=== PATIENT | female | born 1970 | race Caucasian/White ===

== ENCOUNTER → 2018-10-14 | Outpatient (CLI) | payer OTHER | END | disposition home or self-care (01) | LOC: LAB SHORT 14:07 → LAB 14:07 | DX: N39.0 Urinary tract infection, site not specified (principal) | CPT/HCPCS: 87077; 87086; 87186 ==

== ENCOUNTER 2019-11-27 00:21 | Day surgery (SDC) | payer OTHER ==
--- NOTE | 2019-11-27 16:32 | NUR ---
PT DID NOT SHOW FOR HER APPOINTMENT IN THE [facility] TODAY.
== END 2019-11-27 22:39 | disposition home or self-care (01) ==
LOC: ATC 00:21
DX: L57.0 Actinic keratosis (principal); L40.0 Psoriasis vulgaris; E11.9 Type 2 diabetes mellitus without complications; I10 Essential (primary) hypertension; Z79.899 Other long term (current) drug therapy; Z79.4 Long term (current) use of insulin; Z88.2 Allergy status to sulfonamides; Z88.1 Allergy status to other antibiotic agents; Z91.018 Allergy to other foods
CPT/HCPCS: J7050; Q5103

== ENCOUNTER 2019-12-30 00:40 | Day surgery (SDC) | payer OTHER ==
--- NOTE | 2019-12-30 16:00 | NUR ---
PT VERY ANXIOUS ABOUT GETTING INFLECTRA IT IS A NEW MED. EDUCATED PT ON PROCEDURE AND MEDICATION, QUESTIONS/CONCERNS ANSWERED. ORDERING MD NOTIFIED, NEW ORDERS GIVEN. PT REFUSES PREMEDS AT THIS TIME, PT STATES KNOWING SHE CAN HAVE THEM IF SHE NEEDS IS HELPING WITH HER ANXIETY. WILL CONTINUE TO MONITOR. PT DOING WELL AT THIS TIME.
[2019-12-30] MEDS ORDERED: ALLO100 PO (16:03)
[2019-12-30] MEDS ORDERED: BASAGLAR K100 UNIT/2 SC (16:08)
[2019-12-30] MEDS ORDERED: Glucophage1000 MG PO (16:09)
[2019-12-30] MEDS ORDERED: GLYB2.5 PO (16:09)
[2019-12-30] MEDS ORDERED: VERA120 PO (16:10)
== END 2019-12-30 17:08 | disposition home or self-care (01) ==
LOC: ATC 00:40
DX: L40.0 Psoriasis vulgaris (principal); E11.9 Type 2 diabetes mellitus without complications; Z79.4 Long term (current) use of insulin; Z79.899 Other long term (current) drug therapy; Z88.1 Allergy status to other antibiotic agents; Z88.2 Allergy status to sulfonamides; Z88.8 Allergy status to other drugs, medicaments and biological substances
CPT/HCPCS: 96413; 96415; J7050; Q0163; Q5103

== ENCOUNTER 2020-01-17 00:23 | Day surgery (SDC) | payer OTHER ==
[~2020-01-17 00:23] MED LIST: ALLO100 PO; BASAGLAR K100 UNIT/2 SC; GLYB2.5 PO; Glucophage1000 MG PO; VERA120 PO
[2020-01-17] MEDS ORDERED: INFLECTRA100 MG IV (14:16)
== END 2020-01-17 17:22 | disposition home or self-care (01) ==
LOC: ATC 00:23
DX: L40.0 Psoriasis vulgaris (principal); E11.9 Type 2 diabetes mellitus without complications; Z88.1 Allergy status to other antibiotic agents; Z88.2 Allergy status to sulfonamides; Z88.8 Allergy status to other drugs, medicaments and biological substances; Z79.899 Other long term (current) drug therapy; Z79.84 Long term (current) use of oral hypoglycemic drugs
CPT/HCPCS: 96413; 96415; J7050; Q0163; Q5103

== ENCOUNTER 2020-02-10 00:05 | Day surgery (SDC) | payer OTHER ==
[~2020-02-10 00:05] MED LIST changes: -BASAGLAR K100 UNIT/2 SC; +BASAGLAR K100 UNIT/4 SC; +INFLECTRA100 MG IV
[2020-03-20] MEDS ORDERED: VITAMIN D32000 UNIT PO (14:09)
[2020-03-20] MEDS ORDERED: CYAN500 PO (14:09)
[2020-04-06] MEDS ORDERED: Prinivil10 MG PO (23:00)
[2020-04-06] MEDS ORDERED: HYDCHL25 PO (23:00)
[2020-04-07] MEDS ORDERED: Flagyl500 MG PO (01:38)
== END 2020-02-10 16:23 | disposition home or self-care (01) ==
LOC: ATC 00:05
DX: L40.0 Psoriasis vulgaris (principal); E11.9 Type 2 diabetes mellitus without complications; Z79.899 Other long term (current) drug therapy; Z88.2 Allergy status to sulfonamides; Z88.8 Allergy status to other drugs, medicaments and biological substances
CPT/HCPCS: 96413; 96415; J7050; Q0163; Q5103

== ENCOUNTER 2020-04-19 21:44 | Observation (INO) | payer OTHER ==
[~2020-04-19] VITALS: Ht 175.3 cm; Wt 136.1 kg
[~2020-04-19 21:44] MED LIST changes: +CYAN500 PO; +Flagyl500 MG PO; -Glucophage1000 MG PO; +HYDCHL25 PO; +METF500 PO; +Prinivil10 MG PO; +VITAMIN D32000 UNIT PO
[2020-04-19 23:39] LABS: BASOPHILS ABSOLUTE AUTO 0.02 K/mm3 (0.00-0.23); BASOPHILS PERCENT AUTO 0 % (0-2); EOSINOPHILS PERCENT AUTO 2 % (0-6); Hematocrit 40.6 % (33.0-51.0); Hemoglobin 13.5 g/dL (11.5-16.0); IMMATURE GRAN ABSOLUTE AUTO 0.01 K/mm3 (0.00-0.10); IMMATURE GRAN PERCENT AUTO 0 % (0-1); LYMPHOCYTES ABSOLUTE AUTO 2.17 K/mm3 (0.84-5.20); LYMPHOCYTES PERCENT AUTO 33 % (21-46); MONOCYTES ABSOLUTE AUTO 0.36 K/mm3 (0.16-1.47); MONOCYTES PERCENT AUTO 6 % (4-13); Mean Corpuscular HGB 30.7 pg (26.0-34.0); Mean Corpuscular HGB Conc 33.3 g/dL (31.5-36.5); Mean Corpuscular Volume 92 fL (80-100); Mean Platelet Volume 11.3 fL (9.1-12.4); NEUTROPHILS ABSOLUTE AUTO 3.92 K/mm3 (1.96-9.15); NEUTROPHILS PERCENT AUTO 60 % (41-73); Platelet Count 317 K/mm3 (150-400); RDW Coefficient Variation 14.7 % (11.7-14.2); RDW Standard Deviation 47.7 fL (35.1-46.3); White Blood Cell Count 6.58 K/mm3 (4.00-11.30)
[2020-04-19 23:57] LABS: Alanine Aminotransfer (ALT/SGP 61 U/L (12-78); Albumin, Blood 3.4 g/dL (3.4-5.0); Albumin/Globulin Ratio 0.6 (0.8-1.8); Alk Phos 77 U/L (50-136); Anion Gap 9 mmol/L (6-16); Aspartate Aminotrans (AST/SGOT 57 U/L (12-37); Bilirubin, Total 1.4 mg/dL (0.1-1.0); Blood Urea Nitrogen 18 mg/dL (8-24); Bun/Creatinine Ratio 18.3 (12.0-20.0); CO2, Blood 24 mmol/L (21-32); Calcium, Blood 9.2 mg/dL (8.5-10.1); Chloride, Blood 100 mmol/L (98-108); Creatinine, Blood 0.99 mg/dL (0.40-1.00); Globulin, Blood 5.6 g/dL (2.2-4.0); Glomerular Filtration Rate >60 (60-); Glucose, Blood 296 mg/dL (70-99); Potassium, Blood 4.6 mmol/L (3.5-5.5); Sodium, Blood 133 mmol/L (136-145)
[2020-04-20 00:42] LABS: Source, Urine Clean Catch
[2020-04-20 00:45] LABS: Blood, Urine 1+ (Neg); Glucose Qualitative, Urine 1+ (Neg); Ketones, Urine 2+ (Neg); Leukocyte Esterase, Urine 1+ (Neg); Nitrite, Urine Neg (Neg); Protein, Urine 2+ (Neg); Urobilinogen, Urine 2+ (Normal)
[2020-04-20 00:52] LABS: Appearance, Urine Cloudy (Clear); Bilirubin, Urine 2+ (Neg); Color, Urine Amber (P-Yellow)
[2020-04-20 00:54] LABS: Amorphous Light (0-Heavy); Bacteria Many /hpf; Mucus Mod (0-Heavy); Red Blood Cells, Urine 0-2 /hpf (0-2); Squamous Epithelial Cells Many /hpf (Few)
[2020-04-20] MEDS ORDERED: HUMULIN 70100 UNIT/3 SC (01:10)
[2020-04-20] MEDS ORDERED: LANTUS SOL100 UNIT/1 SC (05:39)
[2020-04-20 06:03] LABS: BASOPHILS ABSOLUTE AUTO 0.01 K/mm3 (0.00-0.23); BASOPHILS PERCENT AUTO 0 % (0-2); EOSINOPHILS ABSOLUTE AUTO 0.13 K/mm3 (0.00-0.68); EOSINOPHILS PERCENT AUTO 2 % (0-6); Hematocrit 34.8 % (33.0-51.0); Hemoglobin 11.5 g/dL (11.5-16.0); IMMATURE GRAN ABSOLUTE AUTO 0.01 K/mm3 (0.00-0.10); IMMATURE GRAN PERCENT AUTO 0 % (0-1); LYMPHOCYTES ABSOLUTE AUTO 1.91 K/mm3 (0.84-5.20); LYMPHOCYTES PERCENT AUTO 32 % (21-46); MONOCYTES ABSOLUTE AUTO 0.43 K/mm3 (0.16-1.47); MONOCYTES PERCENT AUTO 7 % (4-13); Mean Corpuscular HGB 30.5 pg (26.0-34.0); Mean Corpuscular Volume 92 fL (80-100); Mean Platelet Volume 10.9 fL (9.1-12.4); NEUTROPHILS ABSOLUTE AUTO 3.57 K/mm3 (1.96-9.15); NEUTROPHILS PERCENT AUTO 59 % (41-73); Platelet Count 238 K/mm3 (150-400); RDW Coefficient Variation 14.5 % (11.7-14.2); RDW Standard Deviation 47.3 fL (35.1-46.3); Red Blood Cell Count 3.77 M/mm3 (3.80-5.20); White Blood Cell Count 6.06 K/mm3 (4.00-11.30)
[2020-04-20 06:24] LABS: Alanine Aminotransfer (ALT/SGP 51 U/L (12-78); Albumin/Globulin Ratio 0.6 (0.8-1.8); Alk Phos 62 U/L (50-136); Anion Gap 9 mmol/L (6-16); Aspartate Aminotrans (AST/SGOT 41 U/L (12-37); Bilirubin, Total 1.2 mg/dL (0.1-1.0); Blood Urea Nitrogen 20 mg/dL (8-24); CO2, Blood 23 mmol/L (21-32); Calcium, Blood 8.6 mg/dL (8.5-10.1); Chloride, Blood 102 mmol/L (98-108); Creatinine, Blood 0.77 mg/dL (0.40-1.00); Globulin, Blood 4.7 g/dL (2.2-4.0); Glomerular Filtration Rate >60 (60-); Glucose, Blood 217 mg/dL (70-99); Sodium, Blood 134 mmol/L (136-145); Total Protein, Blood 7.7 g/dL (6.4-8.2)
--- NOTE | 2020-04-20 07:41 | NUR ---
Pt was admitted to room 324 via stretcher from the ED. Pt is alert and oriented but sleepy. Pt states she has some mild pain at her umbilicus. Pt is on tele showing ST at 100. Pt lungs are clear. Pt is receiving IV fluids. Oriented to room. Pt is sleepy and wanting to rest. Report given to Chula SILVA. Pt in contact isolation until GI panel is received.
--- NOTE | 2020-04-20 07:48 | NUR ---
Rn summary: Pt is a little more alert, arouses easier. Continues to rest. Tele shows SR at 60. IV fluids as ordered. Bed alarm is on, call light in reach.
--- NOTE | 2020-04-20 18:35 | NUR ---
SHIFT SUMMARY BREA COMPLAINED OF PAIN THIS SHIFT AND GOT 25MCG FENTANYL WHICH MADE HER VERY SLEEPY, BUT HELPED A LOT WITH THE PAIN. BED ALARM ON WHILE PT LETHARGIC FROM FENTANYL, SHE IS AWARE AND COOPERATIVE. CBGS NOT REQUIRING INSULIN THIS SHIFT. FINISHING MIVF. SBA TO NENITA. TELE DC'D. NO BM THIS SHIFT, UNABLE TO COLLECT STOOL SAMPLE. TOOK MEDS PRESCRIBED. FAMILY VISITED.
--- NOTE | 2020-04-21 04:01 | NUR ---
SHIFT SUMMARY ADMITTED FOR ENTERITIS. FULL CODE. IV FLUIDS THAT WERE ORDERED HAVE BEEN COMPLETED. UNABLE TO RETRIEVE STOOL SAMPLE THERE HAS BEEN NO BM. SHE HAS ADVANCED TO A SOFT BITE SIZE DIET. MEDICATED FOR PAIN ONE TIME SO FAR THIS SHIFT. RUNS TACHYCARDIC, LOW GRADE FEVER OF 100.5 DEGREES. NO OTHER CONCERNS THIS SHIFT
[2020-04-21 05:21] LABS: BASOPHILS ABSOLUTE AUTO 0.03 K/mm3 (0.00-0.23); BASOPHILS PERCENT AUTO 1 % (0-2); EOSINOPHILS ABSOLUTE AUTO 0.18 K/mm3 (0.00-0.68); EOSINOPHILS PERCENT AUTO 5 % (0-6); Hematocrit 34.8 % (33.0-51.0); Hemoglobin 11.1 g/dL (11.5-16.0); IMMATURE GRAN PERCENT AUTO 0 % (0-1); LYMPHOCYTES ABSOLUTE AUTO 1.13 K/mm3 (0.84-5.20); LYMPHOCYTES PERCENT AUTO 33 % (21-46); MONOCYTES ABSOLUTE AUTO 0.31 K/mm3 (0.16-1.47); MONOCYTES PERCENT AUTO 9 % (4-13); Mean Corpuscular HGB 29.4 pg (26.0-34.0); Mean Corpuscular HGB Conc 31.9 g/dL (31.5-36.5); Mean Corpuscular Volume 92 fL (80-100); Mean Platelet Volume 11.4 fL (9.1-12.4); NEUTROPHILS ABSOLUTE AUTO 1.76 K/mm3 (1.96-9.15); NEUTROPHILS PERCENT AUTO 52 % (41-73); Platelet Count 224 K/mm3 (150-400); RDW Coefficient Variation 14.3 % (11.7-14.2); RDW Standard Deviation 47.7 fL (35.1-46.3); Red Blood Cell Count 3.78 M/mm3 (3.80-5.20); White Blood Cell Count 3.41 K/mm3 (4.00-11.30)
[2020-04-21 05:39] LABS: Albumin, Blood 2.8 g/dL (3.4-5.0); Anion Gap 6 mmol/L (6-16); Blood Urea Nitrogen 12 mg/dL (8-24); Bun/Creatinine Ratio 17.6 (12.0-20.0); CO2, Blood 25 mmol/L (21-32); Calcium, Blood 8.4 mg/dL (8.5-10.1); Chloride, Blood 103 mmol/L (98-108); Creatinine, Blood 0.68 mg/dL (0.40-1.00); Glomerular Filtration Rate >60 (60-); Glucose, Blood 150 mg/dL (70-99); Phosphorus, Blood 3.4 mg/dL (2.5-4.9); Potassium, Blood 3.8 mmol/L (3.5-5.5); Sodium, Blood 134 mmol/L (136-145)
--- NOTE | 2020-04-21 10:52 | NUR ---
GI PANEL WITH PCR RECEIVED VERBAL ORDER FOR GI PANEL WITH PCR D/T ENTERITIS.
--- NOTE | 2020-04-21 17:51 | NUR ---
PER TITA WHITT TO ADD VITAMIN D AND VITAMIN B-12 TO PATIENT'S ORDER.
--- NOTE | 2020-04-21 17:56 | NUR ---
Shift Summary A/Ox4, pleasant and cooperative. Up in room independently, aware of limitations and calls for needs appropriately. No bm this shift, stool sample still needed. Medicated for 5-6/10 lower abdominal pain x 2, patient reports this occurs expecially when eating. Febrile with temps a little over 99.0 this shift otherwise VSS. Appetite is moderately good. Patient reported mild nausea x 1 but refused zofran. States zofran causes her to have a huge headache and will request for this when/if she is extremely nauseous, but requests for phenergan instead. Explained that Dr. Marcus wants to try zofran first and if nausea remains, will give phenergan second. Patient is agreeable. Received verbal order for phenergan, EMAR updated. Will continue to monitor.
--- NOTE | 2020-04-22 04:08 | NUR ---
ASSISTANT SURVEYOR SUMMARY PT HAD AN UNEVENTFUL NIGHT W NO NEW SYMTPOMS. PT DID NOT HAVE A BOWEL MOVEMENT DURING THE NIGHT SO STOOL SAMPLE IS STILL UNCOLLECTED. PT ATTEMPTED TO HAVE A BOWEL MOVEMENT AT THE START OF THE SHIFT BUT CLAIMED THAT IT HURT HER STOMACH TO BEAR DOWN. PT IS AXO X4 AND IS PLEASANT/COOPERATIVE. PT SLEPT MOST OF THE NIGHT AND IS CURRENTLY SLEEPING COMFORTABLY W CALL LIGHT WITHIN REACH.
[2020-04-22 05:41] LABS: BASOPHILS ABSOLUTE AUTO 0.02 K/mm3 (0.00-0.23); BASOPHILS PERCENT AUTO 1 % (0-2); EOSINOPHILS ABSOLUTE AUTO 0.16 K/mm3 (0.00-0.68); EOSINOPHILS PERCENT AUTO 7 % (0-6); Hematocrit 33.1 % (33.0-51.0); IMMATURE GRAN ABSOLUTE AUTO 0.01 K/mm3 (0.00-0.10); IMMATURE GRAN PERCENT AUTO 1 % (0-1); LYMPHOCYTES ABSOLUTE AUTO 0.88 K/mm3 (0.84-5.20); LYMPHOCYTES PERCENT AUTO 40 % (21-46); MONOCYTES ABSOLUTE AUTO 0.19 K/mm3 (0.16-1.47); MONOCYTES PERCENT AUTO 9 % (4-13); Mean Corpuscular HGB 31.1 pg (26.0-34.0); Mean Corpuscular HGB Conc 33.2 g/dL (31.5-36.5); Mean Corpuscular Volume 94 fL (80-100); Mean Platelet Volume 11.2 fL (9.1-12.4); NEUTROPHILS ABSOLUTE AUTO 0.96 K/mm3 (1.96-9.15); NEUTROPHILS PERCENT AUTO 43 % (41-73); Platelet Count 224 K/mm3 (150-400); RDW Coefficient Variation 14.2 % (11.7-14.2); RDW Standard Deviation 47.2 fL (35.1-46.3); Red Blood Cell Count 3.54 M/mm3 (3.80-5.20); White Blood Cell Count 2.22 K/mm3 (4.00-11.30)
[2020-04-22 06:23] LABS: Albumin, Blood 2.9 g/dL (3.4-5.0); Anion Gap 8 mmol/L (6-16); Blood Urea Nitrogen 10 mg/dL (8-24); Bun/Creatinine Ratio 12.3 (12.0-20.0); CO2, Blood 24 mmol/L (21-32); Calcium, Blood 8.8 mg/dL (8.5-10.1); Chloride, Blood 104 mmol/L (98-108); Creatinine, Blood 0.81 mg/dL (0.40-1.00); Glomerular Filtration Rate >60 (60-); Glucose, Blood 180 mg/dL (70-99); Phosphorus, Blood 3.6 mg/dL (2.5-4.9); Sodium, Blood 136 mmol/L (136-145)
--- NOTE | 2020-04-22 19:27 | NUR ---
Shift Summary C/O mild abdominal pain in the morning, nothing too severe for pain medications per patient state. Did not medicate for pain this shift. Patient received "brown cow" cocktail to help move bowels. Appetite is good. Dr. Raymond consulted, plan for upper endoscopy tomorrow afternoon. Patient to have clear liquids for breakfast 04/23/20 and then NPO afterward. Up in room and ambulated in hallway independently, tolerated well. No other acute concerns.
--- NOTE | 2020-04-23 04:33 | NUR ---
SHIFT SUMMARY ADMITTED FOR ENTERITIS. FULL CODE. SCHEDULED FOR UPPER ENDO TODAY. WILL BE CLEAR LIQUID DIET FOR BREAKFAST, THEN NPO. RAPID COVID PERFORMED THIS SHIFT WAS NEGATIVE. PT COMPLAINED OF RASH, NOTICED HIVES FROM A REACTION OF SOME KIND. THIS PT IS REACTIVE TO MANY ANTIBIOTICS, AND SHE HAS HAD ANTIBIOTIC RX SINCE ADMIT. INFORMED HOSPITALIST AND HE ORDERED BENEDRYL PRN. NO BM THIS SHIFT. MIRALAX GIVEN AT BEGINNING OF SHIFT
--- NOTE | 2020-04-23 14:31 | NUR ---
04/23/20 1431 Mildred Dela Cruz History, Chart, Medications and Allergies reviewed before start of procedure.MAC CASE WITH DR. ROBERTSON. SEE ANETHESIA RECORD FOR CARE
--- NOTE | 2020-04-23 15:30 | NUR ---
PT RETURNED FROM HAVING UPPER ENDOSCOPY. PT IS SLEEPY, BUT AWAKENS EASILY. PT IS ON ROOM AIR AND MAINTAINING SPO2. VITALS ARE STABLE, PT DENIES ANY PAIN OR DISCOMFORT. DR OLSON NOTIFIED OF PROCEDURAL RESULTS AND PLAN IS TO DISCHARGE PT WHEN MORE AWAKE.
[2020-04-23] MEDS ORDERED: DOCUZEN 8.6-501 EACH PO (16:29)
[2020-04-23] MEDS ORDERED: IBUP200 PO (16:30)
[2020-04-23] MEDS ORDERED: MIRALAX17 GM PO (16:30)
--- NOTE | 2020-04-23 17:07 | NUR ---
DISCHARGE INSTRUCTIONS GONE OVER WITH PT AND FAMILY. INSTRUCTED ON NEW PRESCRIPTIONS AND WERE TO GET THEM. FOLLOW UP VISITS GONE OVER. BELONGINGS GATHERED AND GIVEN TO PT. PRIOR TO DISCHARGE, PT WAS ABLE TO AMBULATE IN ROOM, CONSUME FLUIDS WITHOUT ANY NAUSEA AND VOMITING, AND DENIED ANY PAIN. FAMILY AND PT BOTH FELT COMFORTABLE WITH PROCEEDING WITH DISCHARGE.
== END 2020-04-23 16:56 | disposition home or self-care (01) ==
LOC: ER 21:44 → MEDS 21:45
PROVIDERS: Internal Medicine; Physician Assistant; Student in an Organized Health Care Education/Training Program; ADMIT Internal Medicine
PROC: 0DB58ZZ Excision of Esophagus, Via Natural or Artificial Opening Endoscopic (ICD-10-PCS; principal; 2020-04-23 14:30)
DX: K29.80 Duodenitis without bleeding (principal); K29.50 Unspecified chronic gastritis without bleeding; K20.9 Esophagitis, unspecified; K44.9 Diaphragmatic hernia without obstruction or gangrene; E66.01 Morbid (severe) obesity due to excess calories; E11.65 Type 2 diabetes mellitus with hyperglycemia; I10 Essential (primary) hypertension; L40.50 Arthropathic psoriasis, unspecified; Z88.1 Allergy status to other antibiotic agents; Z88.0 Allergy status to penicillin; Z88.2 Allergy status to sulfonamides; Z91.018 Allergy to other foods; Z79.4 Long term (current) use of insulin; Z79.899 Other long term (current) drug therapy; Z68.41 Body mass index [BMI] 40.0-44.9, adult; Z20.828 Contact with and (suspected) exposure to other viral communicable diseases
CPT/HCPCS: 36415; 74177; 80053; 80069; 81001; 82947; 83605; 83690; 83930; 85025; 85651; 86140; 87077; 87086; 87186; 88305; 88312; 88342; 93005; 93010; 96361; 96365; 96372; 96375; 96376; 99285-25; A9270-GY; G0378; J1200; J1650; J2001; J2250; J2550; J2704; J3010; J7030; J7120; Q9967; U0002

== ENCOUNTER 2020-06-12 01:56 | Day surgery (SDC) | payer OTHER ==
[~2020-06-12 01:56] MED LIST changes: +DOCUZEN 8.6-501 EACH PO; +HUMULIN 70100 UNIT/3 SC; +IBUP200 PO; +LANTUS SOL100 UNIT/1 SC; +MIRALAX17 GM PO
== END 2020-06-12 12:00 | disposition home or self-care (01) ==
LOC: ATC 01:56
DX: L40.0 Psoriasis vulgaris (principal); L57.0 Actinic keratosis; E11.9 Type 2 diabetes mellitus without complications; I10 Essential (primary) hypertension; Z79.4 Long term (current) use of insulin; Z79.899 Other long term (current) drug therapy; Z88.1 Allergy status to other antibiotic agents; Z91.018 Allergy to other foods; Z88.2 Allergy status to sulfonamides
CPT/HCPCS: J7050; Q5103

== ENCOUNTER 2021-08-12 10:39 | Emergency (ER) | payer OTHER ==
[~2021-08-12] VITALS: Ht 175.3 cm; Wt 129.3 kg
[~2021-08-12 10:39] MED LIST changes: +OXAYDO5 M1 PO
[2021-08-12 11:44] LABS: BASOPHILS ABSOLUTE AUTO 0.04 K/mm3 (0.00-0.23); BASOPHILS PERCENT AUTO 0 % (0-2); EOSINOPHILS ABSOLUTE AUTO 0.09 K/mm3 (0.00-0.68); EOSINOPHILS PERCENT AUTO 1 % (0-6); Hemoglobin 13.9 g/dL (11.5-16.0); IMMATURE GRAN ABSOLUTE AUTO 0.03 K/mm3 (0.00-0.10); IMMATURE GRAN PERCENT AUTO 0 % (0-1); LYMPHOCYTES ABSOLUTE AUTO 2.01 K/mm3 (0.84-5.20); LYMPHOCYTES PERCENT AUTO 23 % (21-46); MONOCYTES ABSOLUTE AUTO 0.53 K/mm3 (0.16-1.47); MONOCYTES PERCENT AUTO 6 % (4-13); Mean Corpuscular HGB Conc 33.9 g/dL (31.5-36.5); Mean Corpuscular Volume 89 fL (80-100); Mean Platelet Volume 10.6 fL (9.1-12.4); NEUTROPHILS ABSOLUTE AUTO 6.21 K/mm3 (1.96-9.15); NEUTROPHILS PERCENT AUTO 70 % (41-73); Platelet Count 288 K/mm3 (150-400); RDW Coefficient Variation 15.1 % (11.7-14.2); RDW Standard Deviation 48.3 fL (35.1-46.3); Red Blood Cell Count 4.63 M/mm3 (3.80-5.20); White Blood Cell Count 8.91 K/mm3 (4.00-11.30)
[2021-08-12 12:24] LABS: Anion Gap 11 mmol/L (6-16); Blood Urea Nitrogen 16 mg/dL (8-24); Bun/Creatinine Ratio 21.5 (12.0-20.0); CO2, Blood 23 mmol/L (21-32); Calcium, Blood 10.2 mg/dL (8.5-10.1); Chloride, Blood 99 mmol/L (98-108); Creatinine, Blood 0.74 mg/dL (0.40-1.00); Glomerular Filtration Rate >60 (60-); Glucose, Blood 419 mg/dL (70-99); Potassium, Blood 4.5 mmol/L (3.5-5.5); Sodium, Blood 133 mmol/L (136-145)
[2021-08-12] MEDS ORDERED: ONDA4ODT MM (12:34)
[2021-08-12] MEDS ORDERED: Norco 5-325 Ta1 EACH PO (12:34)
== END 2021-08-12 12:55 | disposition home or self-care (01) ==
LOC: ER 10:39
PROVIDERS: Physician Assistant
DX: K04.7 Periapical abscess without sinus (principal); E11.9 Type 2 diabetes mellitus without complications; I10 Essential (primary) hypertension; M10.9 Gout, unspecified; Z79.4 Long term (current) use of insulin; Z79.899 Other long term (current) drug therapy; Z79.84 Long term (current) use of oral hypoglycemic drugs
CPT/HCPCS: 36415; 80048; 85025; 96365; 96375; 99283-25; J1885; J2405; J7030

== ENCOUNTER 2022-10-17 18:00 | Emergency (ER) | payer OTHER ==
[~2022-10-17] VITALS: Ht 172.7 cm; Wt 136.1 kg
[~2022-10-17 18:00] MED LIST changes: +Norco 5-325 Ta1 EACH PO; +ONDA4ODT MM
[2022-10-17 18:46] LABS: BASOPHILS ABSOLUTE AUTO 0.05 K/mm3 (0.00-0.23); BASOPHILS PERCENT AUTO 1 % (0-2); EOSINOPHILS ABSOLUTE AUTO 0.14 K/mm3 (0.00-0.68); EOSINOPHILS PERCENT AUTO 2 % (0-6); Hematocrit 38.4 % (33.0-51.0); Hemoglobin 13.2 g/dL (11.5-16.0); IMMATURE GRAN ABSOLUTE AUTO 0.03 K/mm3 (0.00-0.10); IMMATURE GRAN PERCENT AUTO 1 % (0-1); LYMPHOCYTES ABSOLUTE AUTO 2.61 K/mm3 (0.84-5.20); LYMPHOCYTES PERCENT AUTO 42 % (21-46); MONOCYTES ABSOLUTE AUTO 0.36 K/mm3 (0.16-1.47); MONOCYTES PERCENT AUTO 6 % (4-13); Mean Corpuscular HGB 30.6 pg (26.0-34.0); Mean Corpuscular HGB Conc 34.4 g/dL (31.5-36.5); Mean Corpuscular Volume 89 fL (80-100); Mean Platelet Volume 11.3 fL (9.1-12.4); NEUTROPHILS ABSOLUTE AUTO 3.08 K/mm3 (1.96-9.15); NEUTROPHILS PERCENT AUTO 49 % (41-73); Platelet Count 225 K/mm3 (150-400); RDW Coefficient Variation 14.3 % (11.7-14.2); RDW Standard Deviation 45.9 fL (35.1-46.3); Red Blood Cell Count 4.32 M/mm3 (3.80-5.20); White Blood Cell Count 6.27 K/mm3 (4.00-11.30)
[2022-10-17 19:18] LABS: Albumin, Blood 4.1 g/dL (3.4-5.0); Bilirubin, Total 0.7 mg/dL (0.1-1.0); Bun/Creatinine Ratio 25.9 (12.0-20.0); Creatinine, Blood 0.93 mg/dL (0.40-1.00); Globulin, Blood 4.3 g/dL (2.2-4.0); Potassium, Blood 4.5 mmol/L (3.5-5.5); Total Protein, Blood 8.4 g/dL (6.4-8.2)
== END 2022-10-18 00:17 | disposition home or self-care (01) ==
LOC: ER 18:00
PROVIDERS: Physician Assistant
DX: E87.20 Acidosis, unspecified (principal); E11.65 Type 2 diabetes mellitus with hyperglycemia; I10 Essential (primary) hypertension
CPT/HCPCS: 36415; 80053; 82947; 83605; 85025; 96360; 96361; 99283-25; A9270; J1815; J7030

== ENCOUNTER → 2022-11-14 | Outpatient (CLI) | payer OTHER ==
[2022-11-14 08:46] LABS: Source, Urine Clean Catch
[2022-11-14 12:38] LABS: Appearance, Urine Hazy (Clear); Bilirubin, Urine Neg (Neg); Blood, Urine 2+ (Neg); Color, Urine Yellow (P-Yellow); Glucose Qualitative, Urine 3+ (Neg); Ketones, Urine Neg (Neg); Leukocyte Esterase, Urine 3+ (Neg); Nitrite, Urine Neg (Neg); Protein, Urine 2+ (Neg); Specific Gravity, Urine 1.025 (1.003-1.022); Urobilinogen, Urine NORM (Normal)
[2022-11-14 12:58] LABS: Bacteria Many /hpf; Mucus Mod (0-Heavy); Squamous Epithelial Cells Many /hpf (Few)
== END | disposition home or self-care (01) ==
LOC: LAB 08:44 → LAB SHORT 08:44
PROVIDERS: Nurse Practitioner Family
DX: R30.0 Dysuria (principal)
CPT/HCPCS: 36415; 81001; 87086

== ENCOUNTER → 2023-08-04 | Outpatient (CLI) | payer OTHER | LOC: LAB 17:16 → LAB SHORT 17:16 | DX: N39.0 Urinary tract infection, site not specified (principal) | CPT/HCPCS: 87086 ==

== ENCOUNTER 2024-10-13 12:07 | Emergency (ER) | payer OTHER ==
[~2024-10-13] VITALS: Ht 172.7 cm; Wt 131.5 kg
[2024-10-13 12:45] LABS: BASOPHILS ABSOLUTE AUTO 0.03 K/mm3 (0.00-0.23); BASOPHILS PERCENT AUTO 0 % (0-2); EOSINOPHILS PERCENT AUTO 1 % (0-6); Hematocrit 39.8 % (33.0-51.0); Hemoglobin 13.8 g/dL (11.5-16.0); IMMATURE GRAN ABSOLUTE AUTO 0.02 K/mm3 (0.00-0.10); IMMATURE GRAN PERCENT AUTO 0 % (0-1); LYMPHOCYTES ABSOLUTE AUTO 1.74 K/mm3 (0.84-5.20); LYMPHOCYTES PERCENT AUTO 24 % (21-46); MONOCYTES ABSOLUTE AUTO 0.48 K/mm3 (0.16-1.47); MONOCYTES PERCENT AUTO 7 % (4-13); Mean Corpuscular HGB 31.9 pg (26.0-34.0); Mean Corpuscular HGB Conc 34.7 g/dL (31.5-36.5); Mean Corpuscular Volume 92 fL (80-100); Mean Platelet Volume 10.7 fL (9.1-12.4); NEUTROPHILS ABSOLUTE AUTO 4.92 K/mm3 (1.96-9.15); NEUTROPHILS PERCENT AUTO 67 % (41-73); Platelet Count 252 K/mm3 (150-400); RDW Coefficient Variation 14.9 % (11.7-14.2); RDW Standard Deviation 49.4 fL (35.1-46.3); Red Blood Cell Count 4.32 M/mm3 (3.80-5.20); White Blood Cell Count 7.29 K/mm3 (4.00-11.30)
[2024-10-13 13:02] LABS: Albumin/Globulin Ratio 0.9 (0.8-1.8); Bilirubin, Total 0.9 mg/dL (0.1-1.0); Bun/Creatinine Ratio 26.8 (12.0-20.0); Calcium, Blood 9.4 mg/dL (8.5-10.1); Creatinine, Blood 1.23 mg/dL (0.40-1.00); Globulin, Blood 4.3 g/dL (2.2-4.0); Potassium, Blood 4.3 mmol/L (3.5-5.5); Total Protein, Blood 8.3 g/dL (6.4-8.2)
[2024-10-13 15:24] VITALS: BP 133/76
== END 2024-10-13 15:29 | disposition home or self-care (01) ==
LOC: ER 12:07
PROVIDERS: Student in an Organized Health Care Education/Training Program
DX: G51.0 Bell's palsy (principal); E11.9 Type 2 diabetes mellitus without complications; I10 Essential (primary) hypertension; Z88.0 Allergy status to penicillin; Z88.2 Allergy status to sulfonamides; Z88.1 Allergy status to other antibiotic agents; Z91.018 Allergy to other foods; Z79.84 Long term (current) use of oral hypoglycemic drugs; Z79.899 Other long term (current) drug therapy; Z79.4 Long term (current) use of insulin; Z79.891 Long term (current) use of opiate analgesic
CPT/HCPCS: 70450; 80053; 85025; 93005; 93010; 99284-25

== ENCOUNTER 2025-03-31 12:12 | Emergency (ER) | payer OTHER ==
[~2025-03-31] VITALS: Ht 172.7 cm; Wt 131.5 kg
[2025-03-31 12:23] VITALS: BP 142/81
== END 2025-03-31 14:24 | disposition home or self-care (01) ==
LOC: ER 12:12
DX: S92.355A Nondisplaced fracture of fifth metatarsal bone, left foot, initial encounter for closed fracture (principal); R00.0 Tachycardia, unspecified; E66.01 Morbid (severe) obesity due to excess calories; E11.9 Type 2 diabetes mellitus without complications; I10 Essential (primary) hypertension; Z68.41 Body mass index [BMI] 40.0-44.9, adult; Z88.0 Allergy status to penicillin; Z88.2 Allergy status to sulfonamides; Z88.1 Allergy status to other antibiotic agents; Z88.3 Allergy status to other anti-infective agents; Z91.018 Allergy to other foods; Z79.4 Long term (current) use of insulin; Z79.84 Long term (current) use of oral hypoglycemic drugs; Z79.899 Other long term (current) drug therapy; W19.XXXA Unspecified fall, initial encounter
CPT/HCPCS: 29515; 73630; 99283-25